=== PATIENT | female | born 1975 | race American Indian/Alaskan Native ===

== ENCOUNTER 2017-12-27 10:08 | Outpatient (CLI) | payer BC ==
--- NOTE | 2017-12-27 14:34 | Mammography Report ---
BILATERAL DIGITAL SCREENING MAMMOGRAM WITH CAD:12/27/17 CLINICAL: Baseline screening. FINDINGS: The breasts are heterogeneously dense, which may obscure small masses. Bilateral asymmetries and architectural distortion require additional imaging.Architectural distortion in the outer right breast is associated with an irregular asymmetry and architectural distortion in the left breast is identified on the MLO view above the nipple. No suspicious calcifications. IMPRESSION: Bilateral asymmetries and architectural distortion requiring further workup. BI-RADS CATEGORY: 0 -- Needs Additional Imaging RECOMMENDATION: Recall for bilateral spot compression views and bilateral breast ultrasound if needed. ACR BI-RADS MAMMOGRAPHIC CODES: 0 = Needs additional imaging evaluation; 1 = Negative; 2 = Benign; 3 = Probably benign; 4 = Suspicious; 5 = Malignant; 6 = Known biopsy-proven malignancy COMMENT: 1. Dense breast tissue, i.e., adenosis, fibrocystic changes, etc., may obscure an underlying neoplasm. 2. Approximately 10% of cancers are not detected with mammography. 3. A negative mammography report should not delay biopsy if a clinically suspicious mass is present.
== END 2017-12-27 10:09 | disposition home or self-care (01) ==
LOC: SPVWC 10:08
PROVIDERS: ATTEND Obstetrics & Gynecology
DX: Z12.31 Encounter for screening mammogram for malignant neoplasm of breast (principal)
CPT/HCPCS: 77067

== ENCOUNTER 2018-02-20 14:39 | Outpatient (CLI) | payer BC ==
--- NOTE | 2018-02-20 16:40 | Mammography Report ---
BILATERAL DIGITAL DIAGNOSTIC MAMMOGRAM and LEFT BREAST ULTRASOUND: 02/20/18 14:39:00 CLINICAL: Recalled for bilateral asymmetries. COMPARISON:12/27/17 screening FINDINGS: Additional right mammographic views were performed and are negative.Additional left mammographic views were performed and demonstrate partial effacement of asymmetries on spot views. Ultrasound of the left breast (including all four quadrants and the retroareolar area) was performed and demonstrated no mass or shadowing. A benign subareolar cyst at 4 o'clock measures 4 x 2 x 3 mm. A benign cyst at 9 o'clock 4 cm from the nipple measures 5 x 1 x 3 mm and a benign cyst at 10 o'clock 7 cm from the nipple measures 7 x 2 x 6 mm. IMPRESSION: Negative right breast a few benign cysts of the left breast. BI-RADS CATEGORY: 2 - - Benign RECOMMENDATION: Routine mammographic screening in one year. ACR BI-RADS MAMMOGRAPHIC CODES: 0 = Needs additional imaging evaluation; 1 = Negative; 2 = Benign; 3 = Probably benign; 4 = Suspicious; 5 = Malignant; 6 = Known biopsy-proven malignancy COMMENT: 1. Dense breast tissue, i.e., adenosis, fibrocystic changes, etc., may obscure an underlying neoplasm. 2. Approximately 10% of cancers are not detected with mammography. 3. A negative mammography report should not delay biopsy if a clinically suspicious mass is present. COMMENT: Patient follow-up letters are generated via our [employer] application.
== END 2018-02-20 14:40 | disposition home or self-care (01) ==
LOC: SPVWC 14:39
PROVIDERS: ATTEND Obstetrics & Gynecology
DX: N60.02 Solitary cyst of left breast (principal)
CPT/HCPCS: 77066

== ENCOUNTER 2019-01-04 08:35 | Outpatient (CLI) | payer BC ==
--- NOTE | 2019-01-08 13:00 | Mammography Report ---
DIGITAL SCREENING MAMMOGRAM WITH TOMOSYNTHESIS WITH CAD, 01/04/2019 INDICATION: Screening. TECHNIQUE: Digital bilateral 2D and 3D mammography with tomosynthesis was obtained in the craniocaud al and mediolateral oblique projections. Computer-Aided Detection (CAD) analysis was used for interp retation of this study. COMPARISON: 12/27/2017 FINDINGS: Breast Density: The breasts are heterogeneously dense, which may obscure small masses. There is no evidence of dominant mass, suspicious calcifications or architectural distortion in the r ight breast. There is an 11 mm oval partially well circumscribed mass in the medial left breast at ap proximately 10:00, 7 cm from the nipple. This will need further evaluation with ultrasound. Otherwise , bilateral nodularity is grossly unchanged and benign in appearance. IMPRESSION: New left breast mass, as described above. Recommend left breast ultrasound for further ev aluation. BI-RADS Category 0: Incomplete. Needs additional imaging evaluation and/or prior mammograms for gracie rison. A "normal" or negative report should not discourage follow up or biopsy of a clinically significant f inding. A written summary of these findings will be mailed to the patient. The patient will be entered into a mammography reporting system which will generate a reminder letter for the patient's next appointmen t at the appropriate interval. The [employer] recommends yearly mammograms starting at age 40 and continuing as l ralph as a woman is in good health. Breast MRI is recommended for women with an approximate 20-25% or greater lifetime risk of breast cancer, including women with a strong family history of breast or ova jorge a cancer or who have been treated for Hodgkin's disease. Signer Name: Zenobia Domingo MD Signed: 01/08/2019 12:55 PM Workstation Name: [id number]
== END 2019-01-04 08:36 | disposition home or self-care (01) ==
LOC: SPVWC 08:35
PROVIDERS: ATTEND Obstetrics & Gynecology
DX: Z12.31 Encounter for screening mammogram for malignant neoplasm of breast (principal)
CPT/HCPCS: 77063; 77067

== ENCOUNTER 2019-05-10 10:10 | Outpatient (CLI) | payer BC ==
--- NOTE | 2019-05-10 11:07 | Ultrasound Report ---
LEFT BREAST ULTRASOUND HISTORY: Follow-up for a left upper inner mass on her last mammogram. She also reports new left breas t pain. COMPARISON: 01/04/2019 screening mammogram with tomosynthesis FINDINGS: Ultrasound of the left breast demonstrated A benign cyst at 10:00 6 cm from the nipple measuring 6 x 4 x 2 mm. This correlates with the mammogra phic mass. No solid mass or shadowing. A benign cyst at 3:00 7 cm from the nipple measures 9 x 5 x 4 mm and a cluster of tiny cysts at 3:00 6 cm from the nipple correlates with an area of pain. IMPRESSION: Benign cysts and no suspicious finding. Recommend routine mammographic screening. BIRADS 2: Benign Signer Name: Wilmer Polanco MD Signed: 05/10/2019 11:03 AM Workstation Name: [id number]
== END 2019-05-10 10:11 | disposition home or self-care (01) ==
LOC: SPVWC 10:10
PROVIDERS: ATTEND Obstetrics & Gynecology
DX: R92.2 Inconclusive mammogram (principal); N60.02 Solitary cyst of left breast